=== PATIENT | male | born 1975 | race Hispanic/Latino ===

== ENCOUNTER 2016-10-22 21:44 | Emergency (ER) | payer OTHER ==
[~2016-10-22] VITALS: Ht 182.9 cm; Wt 122.7 kg
[~2016-10-22 21:44] MED LIST: CIPROFLOXACN500 MG PO; COLACE100 MG PO; METRONIDAZOL500 MG PO; METRONIDAZOLE500 MG PO; NAPROSYN500 MG PO; NO HOME MEDS; TYLENOL # 31 TA1 PO; ULTRAM50 M1 PO
[2016-10-22 22:40] LABS: HEMATOCRIT 44.8 % (39.0-50.0); HEMOGLOBIN 15.4 g/dl (14.0-18.0); IMMATURE GRANULOCYTES 0.4 % (0.0-1.0); MEAN CELL VOLUME 89.1 fL CALC (80.0-100.0); MEAN CORPUSCULAR HGB 30.6 pG CALC (26.0-32.0); MEAN CORPUSCULAR HGB CONC 34.4 g/L CALC (32.0-36.0); NEUT# 7.49 thou/uL (1.82-7.42); RED BLOOD COUNT 5.03 mill/uL (4.70-6.10); RED CELL DISTRI WIDTH 13.4 % (11.5-15.5); URINE BILIRUBIN - DIPSTICK NEGATIVE (NEGATIVE); URINE BLOOD DIPSTICK TRACE-INTACT (NEGATIVE); URINE CLARITY CLEAR; URINE COLOR YELLOW; URINE GLUCOSE - DIPSTICK NEGATIVE (NEGATIVE); URINE KETONE NEGATIVE (NEGATIVE); URINE LEUK ESTERASE NEGATIVE (NEGATIVE); URINE NITRITE - DIPSTICK NEGATIVE (Negative); URINE PROTEIN - DIPSTICK TRACE mg/dL (NEG-TRACE); URINE SPECIFIC GRAVITY 1.015; URINE UROBILINOGEN - DIPSTICK >=8.0 E.U./dL (0.2)
[2016-10-22 22:50] LABS: ALBUMIN 4.5 g/dL (3.2-5.0); ALKALINE PHOSPHATASE 81 u/l (38-126); AMYLASE 34 u/l (30-110); ANION GAP 16 (6-22 (CALC)); BILIRUBIN, TOTAL 1.6 mg/dL (0.0-1.4); BUN 12 mg/dL (9-20); BUN/CREATININE RATIO 14 (12-20 (CALC)); CALCIUM 9.1 mg/dL (8.4-10.2); CARBON DIOXIDE 24 mmol/l (22-30); CHLORIDE 103 mmol/l (95-108); CREATININE 0.8 mg/dL (0.7-1.3); GFR > 60 ML/MIN (>=60 (CALC)); GFR FOR AFR.AMER. > 60 ML/MIN (>=60 (CALC)); GLUCOSE 118 mg/dL (75-110); LIPASE 39 u/l (23-300); POTASSIUM 3.7 mmol/l (3.5-5.1); SGOT/AST 48 u/l (17-59); SGPT/ALT 115 u/l (21-72); SODIUM 139 mmol/l (137-146)
[2016-10-23] MEDS ORDERED: CIPROFLOXACN500 MG PO (00:14)
[2016-10-23] MEDS ORDERED: ZOFRAN ODT4 MG PO (00:14)
[2016-10-23] MEDS ORDERED: METRONIDAZOL500 MG PO (00:14)
[2016-10-23] MEDS ORDERED: ULTRAM50 M1 PO (00:14)
[2016-10-23 00:55] VITALS: BP 113/65
== END 2016-10-23 00:55 | disposition home or self-care (01) | DRG 392 ==
LOC: ED 21:44
PROVIDERS: Emergency Medicine
DX: K57.32 Diverticulitis of large intestine without perforation or abscess without bleeding (principal); R50.9 Fever, unspecified; R10.32 Left lower quadrant pain; R11.0 Nausea
CPT/HCPCS: Q9967

== ENCOUNTER 2018-06-17 18:05 | Observation (INO) | payer BC, OTHER ==
[~2018-06-17] VITALS: Ht 182.9 cm; Wt 111.0 kg
[~2018-06-17 18:05] MED LIST changes: +ZOFRAN ODT4 MG PO
--- NOTE | 2018-06-17 18:31 | NUR ---
PATIENT INFORMED OF WAIT TIME, VERBAL UNDERSTANDING. PATIENT AMBULATES BACK TO WAITING ROOM IN STABLE CONDITION, FAMILY ACCOMPANIES.
--- NOTE | 2018-06-17 18:43 | NUR ---
PATIENT CURRENTLY ON PHONE IN WAITING ROOM, NO SIGNS OF DISTRESS NOTED.
--- NOTE | 2018-06-17 18:59 | NUR ---
REPORT GIVEN TO MEENAKSHI JEROME. WAITING FOR AVAILABLE ROOM. CARE RELINQUISED.
--- NOTE | 2018-06-17 20:14 | NUR ---
PT AMBULATED TO ROOM STATES THAT HE HAS BEEN FEELING WEAK OVER THE PAST FEW DAYS. CHECKED HIS BLOOD SUGAR ON A FAMILY GLUCOMETER AND SAW THAT IT WAS HIGH. PT IS AOX4. PT DENIES ANY C/P SOB, N/V. STATES HE HAS BEEN VERY THIRSTY AND URINATING ALOT.
[2018-06-17 20:57] LABS: URINE BILIRUBIN - DIPSTICK NEGATIVE (NEGATIVE); URINE BLOOD DIPSTICK TRACE-INTACT (NEGATIVE); URINE COLOR YELLOW; URINE GLUCOSE - DIPSTICK >=1000 mg/dL (NEGATIVE); URINE KETONE 15 mg/dL (NEGATIVE); URINE LEUK ESTERASE NEGATIVE (NEGATIVE); URINE NITRITE - DIPSTICK NEGATIVE (Negative); URINE PH 5.5 (4.5-8.0); URINE PROTEIN - DIPSTICK NEGATIVE (NEG-TRACE); URINE SPECIFIC GRAVITY 1.025; URINE UROBILINOGEN - DIPSTICK 0.2 E.U./dL (0.2)
--- NOTE | 2018-06-17 21:14 | NUR ---
PT RESTING ON STRETCHER, AWAITING RESULTS
[2018-06-17 21:17] LABS: HEMATOCRIT 47.5 % (39.0-50.0); IMMATURE GRANULOCYTES 0.3 % (0.0-5.0); MEAN CORPUSCULAR HGB 30.7 pG CALC (26.0-32.0); MEAN CORPUSCULAR HGB CONC 33.7 g/L CALC (32.0-36.0); NEUT# 3.22 thou/uL (1.82-7.42); RED BLOOD COUNT 5.22 mill/uL (4.70-6.10); RED CELL DISTRI WIDTH 13.3 % (11.5-15.5)
[2018-06-17 21:34] LABS: ALBUMIN 4.6 g/dL (3.2-5.0); ANION GAP 19 (6-22 (CALC)); BILIRUBIN, TOTAL 0.9 mg/dL (0.0-1.4); BUN 14 mg/dL (9-20); BUN/CREATININE RATIO 20 (12-20 (CALC)); CARBON DIOXIDE 24 mmol/l (22-30); CHLORIDE 97 mmol/l (95-108); CREATININE 0.7 mg/dL (0.7-1.3); GFR > 60 ML/MIN (>=60 (CALC)); GFR FOR AFR.AMER. > 60 ML/MIN (>=60 (CALC)); POTASSIUM 4.2 mmol/l (3.5-5.1); SGOT/AST 48 u/l (17-59); SODIUM 136 mmol/l (137-146); TOTAL PROTEIN 8.3 g/dL (6.3-8.2)
[2018-06-17 21:38] LABS: ALKALINE PHOSPHATASE 166 u/l (38-126)
[2018-06-17 21:46] LABS: MYOGLOBIN 40 ng/mL (0 - 121)
--- NOTE | 2018-06-17 22:13 | NUR ---
REPORT GIVEN TO JUSTUS ARRIETA
--- NOTE | 2018-06-17 23:35 | NUR ---
REPORT TO MATTHEW NURSE/MED-SURG
[2018-06-17 23:45] VITALS: BP 141/83
--- NOTE | 2018-06-17 23:45 | NUR ---
PT ARRIVED TO THE FLOOR VIA WHEELCHAIR ACCOMPANIED BY ED NURSE. PT APPEARS TO BE STABLE AT THIS TIME. SPOUSE AT SIDE. V/S ASSESSED, COMPLETE ASSESSMENT AT THIS TIME. WEIGHT OBTAINED ON STANDING SCALE 244.9LBS PT REPORTS HAVING LOST 40+-LBS OVER THE LAST 3 MONTHS UNINTENTIONALLY. LUNG SOUNDS ARE CLEAR. ABD FIRM NON-TENDER W/ACITVE BOWEL SOUNDS, NO NOTED EDEMA, STRON PULSES AND CORE CLEANER, NEURO'S INTACT, SKIN INTACT. POC DISCUSSED W/PT AND SPOUSE. COMFORT MEASURES PROVIDED AND ROLL-AWAY BED FOR SPOUSE PROVIDED. CALL LIGHT AT SIDE AND PT ENCOURAGED TO CALL IF ANY OTHER NEEDS ARISE.
--- NOTE | 2018-06-17 23:45 | NUR ---
TO FLOOR VIA W/C WITH .
--- NOTE | 2018-06-18 00:30 | NUR ---
IV FLUIDS ARE RUNNING @125 TO A #20G IV/SITE APPEARS HEALTHY. PT LEFT IN BED W/LIGHTS LOW AND TV ON, AT BEDSIDE.
[2018-06-18 03:43] VITALS: BP 111/73
--- NOTE | 2018-06-18 04:25 | NUR ---
PT SLEEPING, ASLEEP AT BEDSIDE. PT AWOKE TO MY ENTERING ROOM AND DENIED ANY NEEDS. CALL LIGHT IS AT BEDSIDE.
--- NOTE | 2018-06-18 07:05 | NUR ---
PT REPORT RECIEVED FROM MEENAKSHI CASTRO. PT SLEEPING. NO S/S OF DISTRESS. CALL LIGHT IN REACH. WILL CONTINUE TO MONITOR.
[2018-06-18 07:43] LABS: CHOLESTEROL HDL RATIO 5.5 (<4.4 (CALC)); HDL CHOLESTEROL 27 mg/dL (>=40); TOTAL CHOLESTEROL 149 mg/dl (0-199); VLDL CHOLESTROL 93 mg/dl (5-56 (CALC))
[2018-06-18 07:47] LABS: TOTAL TRIGLYCERIDES 465 mg/dl (30-149)
[2018-06-18 08:11] VITALS: BP 114/63
--- NOTE | 2018-06-18 08:11 | NUR ---
PT A/O X3. SPEECH IS CLEAR. RESP EVEN AND UNLABORED. LUNG SOUNDS CLEAR. BOWEL SOUNDS ACTIVE X4. STRONG RADIAL AND PEDAL PULSES. #20 LFA NS @125. SITE APPEARS HEALTHY. SKIN IS INTACT. PT DENIES ANY PAIN OR NEEDS. POC DISCUSSED. SAFETY PRECAUTIONS IN PLACE. CALL LIGHT IN REACH. WILL CONTINUE TO MONITOR.
--- NOTE | 2018-06-18 12:25 | NUR ---
PT WATCHING TELEVISION. NO C/O PAIN OR NEEDS. CALL LIGHT IN REACH. SPOUSE AT BEDSIDE. WILL CONTINUE TO MONITOR.
--- NOTE | 2018-06-18 13:13 | NUR ---
DR. ROPER IN TO SEE PT
[2018-06-18] MEDS ORDERED: METFORMIN1000 MG PO (14:45)
--- NOTE | 2018-06-18 16:00 | NUR ---
D/C INSTRUCTIONS DISCUSSED W/ PT. PT STATES UNDERSTANDING. IV REMOVED. CATHETER INTACT. PT GETTING DRESSED AT THIS TIME
--- NOTE | 2018-06-18 16:08 | NUR ---
Discharge instructions given. Patient verbalizes understanding of same. Discharged in stable condition via Wheelchair to Home with family. All belongings sent with pt.
== END 2018-06-18 16:08 | disposition home or self-care (01) | DRG 641 ==
LOC: ED 18:05 → ED-I 21:55 → ED 22:28 → MS2 22:29
PROVIDERS: Emergency Medicine; ADMIT Internal Medicine; ATTEND Internal Medicine
DX: R73.9 Hyperglycemia, unspecified (principal); E66.9 Obesity, unspecified; Z72.89 Other problems related to lifestyle; Z87.891 Personal history of nicotine dependence; Z68.33 Body mass index [BMI] 33.0-33.9, adult
CPT/HCPCS: G0378

== ENCOUNTER 2020-03-30 17:17 | Emergency (ER) | payer BC ==
[~2020-03-30] VITALS: Ht 182.9 cm; Wt 118.0 kg
[~2020-03-30 17:17] MED LIST changes: +METFORMIN1000 MG PO
[2020-03-30] MEDS ORDERED: BENADRYL 50MG C50 MG PO (18:06)
[2020-03-30] MEDS ORDERED: KENALOG15 GM/TUBE EX (18:06)
[2020-03-30] MEDS ORDERED: NO HOME MED (18:29)
[2020-03-30 18:30] VITALS: BP 138/82
== END 2020-03-30 18:30 | disposition home or self-care (01) | DRG 607 ==
LOC: ED 17:17
DX: L25.9 Unspecified contact dermatitis, unspecified cause (principal)

== ENCOUNTER 2020-07-14 | Emergency (ER) | payer OTHER ==
[~2020-07-14] MED LIST changes: +BENADRYL 50MG C50 MG PO; +KENALOG15 GM/TUBE EX; +NO HOME MED
[2020-07-14 20:41] LABS: HEMATOCRIT 49.1 % (39.0-50.0); HEMOGLOBIN 16.1 g/dl (14.0-18.0); IMMATURE GRANULOCYTES 0.2 % (0.0-5.0); MEAN CELL VOLUME 91.9 fL CALC (80.0-100.0); MEAN CORPUSCULAR HGB 30.1 pG CALC (26.0-32.0); MEAN CORPUSCULAR HGB CONC 32.8 g/dL CAL (32.0-36.0); NEUT# 4.31 thou/uL (1.82-7.42); RED BLOOD COUNT 5.34 mill/uL (4.70-6.10); RED CELL DISTRI WIDTH 13.7 % (11.5-15.5)
[2020-07-14 21:01] LABS: ALBUMIN 4.8 g/dL (3.2-5.0); ALKALINE PHOSPHATASE 75 u/l (38-126); AMYLASE 43 u/l (30-110); ANION GAP 13 (6-22 (CALC)); BILIRUBIN, TOTAL 1.5 mg/dL (0.0-1.4); BUN 17 mg/dL (9-20); BUN/CREATININE RATIO 18 (12-20 (CALC)); CARBON DIOXIDE 25 mmol/l (22-30); CHLORIDE 102 mmol/l (95-108); GFR > 60 ML/MIN (>=60 (CALC)); GFR FOR AFR.AMER. > 60 ML/MIN (>=60 (CALC)); LIPASE 47 u/l (23-300); POTASSIUM 3.6 mmol/l (3.5-5.1); SGOT/AST 45 u/l (17-59); SODIUM 137 mmol/l (137-146); TOTAL PROTEIN 8.1 g/dL (6.3-8.2)
[2020-07-14 21:39] LABS: URINE BILIRUBIN - DIPSTICK NEGATIVE (NEGATIVE); URINE BLOOD DIPSTICK NEGATIVE (NEGATIVE); URINE COLOR YELLOW; URINE GLUCOSE - DIPSTICK NEGATIVE (NEGATIVE); URINE KETONE NEGATIVE (NEGATIVE); URINE LEUK ESTERASE NEGATIVE (NEGATIVE); URINE PROTEIN - DIPSTICK TRACE mg/dL (NEG-TRACE); URINE SPECIFIC GRAVITY 1.025
[2020-07-14 21:42] LABS: URINE NITRITE - DIPSTICK NEGATIVE (Negative)
[2020-07-15] MEDS ORDERED: ONDANSETRON4 MG PO (00:25)
== END 2020-07-15 00:43 | disposition home or self-care (01) | DRG 392 ==
PROVIDERS: Emergency Medicine
DX: R11.10 Vomiting, unspecified (principal); E86.0 Dehydration

== ENCOUNTER 2021-09-17 22:08 | Emergency (ER) | payer OTHER ==
[~2021-09-17] VITALS: Ht 182.9 cm; Wt 118.0 kg
[~2021-09-17 22:08] MED LIST changes: +ONDANSETRON4 MG PO
[2021-09-17 22:16] VITALS: BP 162/94
[2021-09-17 22:31] VITALS: BP 143/83
[2021-09-17 22:45] VITALS: BP 143/86
[2021-09-17 23:00] LABS: HEMATOCRIT 46.4 % (39.0-50.0); HEMOGLOBIN 15.5 g/dl (14.0-18.0); IMMATURE GRANULOCYTES 0.1 % (0.0-5.0); MEAN CELL VOLUME 91.7 fL CALC (80.0-100.0); MEAN CORPUSCULAR HGB 30.6 pG CALC (26.0-32.0); MEAN CORPUSCULAR HGB CONC 33.4 g/dL CAL (32.0-36.0); NEUT# 3.68 thou/uL (1.82-7.42); RED BLOOD COUNT 5.06 mill/uL (4.70-6.10); RED CELL DISTRI WIDTH 12.8 % (11.5-15.5)
[2021-09-17 23:01] VITALS: BP 131/62
[2021-09-17 23:20] LABS: ALBUMIN 4.2 g/dL (3.2-5.0); ANION GAP 15 (6-22 (CALC)); BUN 20 mg/dL (9-20); BUN/CREATININE RATIO 23 (12-20 (CALC)); CARBON DIOXIDE 22 mmol/l (22-30); CHLORIDE 101 mmol/l (95-108); CREATININE 0.8 mg/dL (0.7-1.3); GFR FOR AFR.AMER. > 60 ML/MIN (>=60 (CALC)); GFR OTHER RACES > 60 ML/MIN (>=60 (CALC)); POTASSIUM 4.3 mmol/l (3.5-5.1); SGOT/AST 68 u/l (17-59); SODIUM 134 mmol/l (137-146); TOTAL PROTEIN 7.5 g/dL (6.3-8.2)
[2021-09-17 23:21] LABS: ALKALINE PHOSPHATASE 145 u/l (38-126); BILIRUBIN, TOTAL 0.5 mg/dL (0.0-1.4)
[2021-09-17 23:31] VITALS: BP 142/80
[2021-09-18] MEDS ORDERED: METFORMIN HCL500 M1 PO (00:28)
[2021-09-18] MEDS ORDERED: VOLTAREN75 MG PO (00:28)
[2021-09-18 00:32] VITALS: BP 142/80
== END 2021-09-18 00:42 | disposition home or self-care (01) ==
LOC: ED 22:08
PROVIDERS: Family Medicine
DX: R13.10 Dysphagia, unspecified (principal); E11.9 Type 2 diabetes mellitus without complications; Z20.822 Contact with and (suspected) exposure to COVID-19; Z87.891 Personal history of nicotine dependence
CPT/HCPCS: Q9967